=== PATIENT | female | born 1965 | race African-American/Black ===

== ENCOUNTER 2022-03-17 04:19 | Day surgery (SDC) | payer OTHER ==
[2022-03-10 16:11] VITALS: BMI 30.7
[2022-03-17] MEDS ORDERED: POVIDONE-IODINE 5% OPHTHALMIC PREP 30 ML SOLUTION ONE (10:41)
[2022-03-17] MEDS ORDERED: LIDOCAINE 1%/EPI 1:100000 (20 ML MULTI DOSE VIAL) ONE (10:44)
[2022-03-17] MEDS ORDERED: TETRACAINE 0.5% OPHTH SOLN 2 ML BOTTLE ONE (11:51)
[2022-03-17] MEDS ORDERED: TETRACAINE 0.5% OPHTH SOLN 2 ML BOTTLE OS ONE (12:00)
[2022-03-17] MEDS ORDERED: MIDAZOLAM HCL 2 MG/2 ML SINGLE DOSE VIAL ONE (12:03)
[2022-03-17] MEDS ORDERED: LIDOCAINE 1%/EPI 1:100000 (20 ML MULTI DOSE VIAL) IJ ONE (12:13)
[2022-03-17] MEDS ORDERED: BSS (NA/CA/MG/K) BALANCED SALT SOLUTION OPHTH SOLN 15 ML BOTTLE ONE (12:21)
[2022-03-17] MEDS ORDERED: TOBRAMYCIN/DEXAMETHASONE OPHTH. OINTMENT 1 TUBE ONE (12:41)
[2022-03-17] MEDS ORDERED: TOBRAMYCIN/DEXAMETHASONE OPHTH. OINTMENT 1 TUBE TP ONE (12:45)
[2022-03-17 14:00] VITALS: TEMP 97.1
[2022-03-17 14:03] VITALS: BP 159/68; PULSE 70
== END 2022-03-17 13:43 | disposition home or self-care (01) ==
LOC: EDBD → JASU-SURG 04:19
PROVIDERS: ATTEND Ophthalmology
PROC: 08U107Z Supplement of Left Eye with Autologous Tissue Substitute, Open Approach (ICD-10-PCS; principal; 2022-03-17 11:30)
DX: H11.002 Unspecified pterygium of left eye (principal)
CPT/HCPCS: 88304-TC